=== PATIENT | male | born 1975 | race Caucasian/White ===

== ENCOUNTER 2022-01-23 17:42 | Inpatient (IN) | payer OTHER ==
[2022-01-23] MEDS ORDERED: MAGNESIUM CITRATE 300 ML BOTTLE PO PRN (19:22)
[2022-01-23] MEDS ORDERED: MAG HYDROX/AL HYDROX/SIMETH 30 ML UNIT-DOSE CUP PO PRN (19:22)
[2022-01-23] MEDS ORDERED: ONDANSETRON *ODT* 4 MG TABLET SL PRN (19:22)
[2022-01-23] MEDS ORDERED: METHOCARBAMOL 500 MG TABLET PO PRN (19:22)
[2022-01-23] MEDS ORDERED: MENTHOL/PHENOL 1 EACH UD MM PRN (19:22)
[2022-01-23] MEDS ORDERED: methaDONE HCL 10 MG TABLET (FOR DETOX USE ONLY) PO ONE (19:22)
[2022-01-23] MEDS ORDERED: LOPERAMIDE HCL 2 MG CAPSULE PO PRN (19:22)
[2022-01-23] MEDS ORDERED: ACETAMINOPHEN 325 MG TABLET (FP) PO PRN ×2 (19:22)
[2022-01-23] MEDS ORDERED: P-EPHED 60MG/TRIPROLIDI 2.5MG TABLET PO PRN (19:22)
[2022-01-23] MEDS ORDERED: MAGNESIUM HYDROX 2400MG/30ML ORAL SUSPENSION 30 ML CUP PO PRN (19:22)
[2022-01-23] MEDS ORDERED: cloNIDine HCL 0.1 MG TABLET PO PRN (19:22)
[2022-01-23] MEDS ORDERED: ALBUTEROL SO4 HFA INHALER IH PRN (19:24)
[2022-01-23] MEDS ORDERED: methaDONE HCL 10 MG TABLET (FOR DETOX USE ONLY) ONE (19:48)
[2022-01-23 22:15] VITALS: BMI 25.0
[2022-01-23] MEDS: THIAMINE HCL 100 MG TABLET (FP) PO SCH (23:40)
[2022-01-23] MEDS: BACITRACIN 0.9 GM PACKET TP SCH (23:51)
[2022-01-24] MEDS ORDERED: methaDONE HCL 10 MG TABLET (FOR DETOX USE ONLY) ONE (08:52)
[2022-01-24] MEDS: BACITRACIN 0.9 GM PACKET TP SCH ×2 (10:23→22:37)
[2022-01-24] MEDS: PRENATAL VITAMINS W/ FOLIC ACID TABLET (FP) PO SCH (10:23)
[2022-01-24] MEDS: NICOTINE 7 MG/24 HOURS TOPICAL PATCH TD SCH (10:23)
[2022-01-24] MEDS ORDERED: IBUPROFEN 400 MG TABLET (FP) PO ONE (11:30)
[2022-01-24] MEDS ORDERED: BACLOFEN 10 MG TABLET (FP) PO ONE (11:31)
[2022-01-24] MEDS ORDERED: DICYCLOMINE HCL 10 MG CAPSULE PO ONE (11:33)
[2022-01-24] MEDS ORDERED: DIPHENOXYLATE 2.5/ATROPINE.025 1 COMBO TABLET PO ONE (11:39)
[2022-01-24] MEDS ORDERED: CYCLOBENZAPRINE HCL 10 MG TABLET (FP) PO SCH (11:45)
[2022-01-24] MEDS ORDERED: cloNIDine HCL 0.1 MG TABLET PO ONE (12:00)
[2022-01-24] MEDS: LIDOCAINE 5% TOPICAL PATCH TP SCH (12:14)
[2022-01-24] MEDS ORDERED: CYCLOBENZAPRINE HCL 10 MG TABLET (FP) PO ONE (12:15)
[2022-01-24 14:19] LABS: HEMATOCRIT 40.4 % (35.4-49); HEMOGLOBIN 13.4 GM/dL (11.7-16.9); MCH 29.2 pg (25.7-33.7); MCHC 33.3 g/dl (32.0-35.9); MEAN CELL VOLUME 87.8 fl (80-96); MEAN PLT VOLUME 8.9 fl (7.5-11.1); PLATELET COUNT 259 10^3/uL (134-434); RDW 13.5 % (11.9-15.9); WHITE BLOOD COUNT 7.5 K/mm3 (4.0-10.0)
[2022-01-24 14:26] LABS: BLOOD UREA NITROGEN 16.6 mg/dL (7-18); CALCIUM 8.6 mg/dL (8.5-10.1)
[2022-01-24 14:27] LABS: ALBUMIN 3.4 g/dl (3.4-5.0)
[2022-01-24 14:30] LABS: CREATININE 0.8 mg/dL (0.55-1.3)
[2022-01-24 14:31] LABS: BILIRUBIN,TOTAL 0.8 mg/dL (0.2-1); TOT PROT 6.2 g/dl (6.4-8.2)
[2022-01-24] MEDS: LIDOCAINE PATCH REMOVAL MC SCH (22:38)
[2022-01-24] MEDS: hydrOXYzine PAMOATE 25 MG CAPSULE (FP) PO PRN (22:38)
[2022-01-24] MEDS: THIAMINE HCL 100 MG TABLET (FP) PO SCH (22:38)
[2022-01-24] MEDS: MELATONIN 5 MG TABLETS PO PRN (22:38)
[2022-01-25] MEDS: PRENATAL VITAMINS W/ FOLIC ACID TABLET (FP) PO SCH (09:52)
[2022-01-25] MEDS: NICOTINE 7 MG/24 HOURS TOPICAL PATCH TD SCH (09:53)
[2022-01-25] MEDS: diazePAM 5 MG TABLET PO PRN ×2 (09:54→22:13)
[2022-01-25] MEDS: BACITRACIN 0.9 GM PACKET TP SCH ×2 (09:55→22:12)
[2022-01-25] MEDS: LIDOCAINE 5% TOPICAL PATCH TP SCH (09:56)
[2022-01-25] MEDS ORDERED: methaDONE HCL 10 MG TABLET (FOR DETOX USE ONLY) PO ONE (10:00)
[2022-01-25] MEDS: THIAMINE HCL 100 MG TABLET (FP) PO SCH (22:12)
[2022-01-25] MEDS: LIDOCAINE PATCH REMOVAL MC SCH (22:14)
[2022-01-25] MEDS: MELATONIN 5 MG TABLETS PO PRN (22:14)
[2022-01-26] MEDS: diazePAM 5 MG TABLET PO PRN ×2 (05:15→10:28)
[2022-01-26] MEDS: hydrOXYzine PAMOATE 25 MG CAPSULE (FP) PO PRN ×2 (05:15→10:26)
[2022-01-26] MEDS ORDERED: methaDONE HCL 10 MG TABLET (FOR DETOX USE ONLY) ONE (08:38)
[2022-01-26] MEDS: BACITRACIN 0.9 GM PACKET TP SCH ×3 (10:26→22:11)
[2022-01-26] MEDS: LIDOCAINE 5% TOPICAL PATCH TP SCH ×2 (10:26→10:31)
[2022-01-26] MEDS: PRENATAL VITAMINS W/ FOLIC ACID TABLET (FP) PO SCH (10:26)
[2022-01-26] MEDS: NICOTINE 7 MG/24 HOURS TOPICAL PATCH TD SCH (10:26)
[2022-01-26 14:08] LABS: SARS-CoV-2 NAA Not Detected (Not Detected)
[2022-01-26] MEDS: THIAMINE HCL 100 MG TABLET (FP) PO SCH (22:11)
[2022-01-26] MEDS: LIDOCAINE PATCH REMOVAL MC SCH (22:11)
[2022-01-27] MEDS: BACITRACIN 0.9 GM PACKET TP SCH ×2 (10:00→22:47)
[2022-01-27] MEDS ORDERED: methaDONE HCL 10 MG TABLET (FOR DETOX USE ONLY) PO ONE (10:00)
[2022-01-27] MEDS: diazePAM 5 MG TABLET PO PRN ×2 (10:01→22:50)
[2022-01-27] MEDS: PRENATAL VITAMINS W/ FOLIC ACID TABLET (FP) PO SCH (10:01)
[2022-01-27] MEDS: LIDOCAINE 5% TOPICAL PATCH TP SCH (10:05)
[2022-01-27] MEDS: NICOTINE 7 MG/24 HOURS TOPICAL PATCH TD SCH (10:06)
[2022-01-27] MEDS ORDERED: NICOTINE 10 MG CARTRIDGE (INHALER) IH PRN (18:16)
[2022-01-27] MEDS: ACETAMINOPHEN 325 MG TABLET (FP) PO PRN (18:40)
[2022-01-27] MEDS: THIAMINE HCL 100 MG TABLET (FP) PO SCH (22:47)
[2022-01-27] MEDS: LIDOCAINE PATCH REMOVAL MC SCH (22:47)
[2022-01-27] MEDS: hydrOXYzine PAMOATE 25 MG CAPSULE (FP) PO PRN (22:50)
[2022-01-28] MEDS: hydrOXYzine PAMOATE 25 MG CAPSULE (FP) PO PRN (05:30)
[2022-01-28] MEDS: ACETAMINOPHEN 325 MG TABLET (FP) PO PRN (05:30)
[2022-01-28 07:16] VITALS: BP 102/52; PULSE 83; TEMP 97
[2022-01-28] MEDS: LIDOCAINE 5% TOPICAL PATCH TP SCH (10:49)
[2022-01-28] MEDS: NICOTINE 7 MG/24 HOURS TOPICAL PATCH TD SCH (10:49)
[2022-01-28] MEDS: BACITRACIN 0.9 GM PACKET TP SCH (10:49)
[2022-01-28] MEDS: PRENATAL VITAMINS W/ FOLIC ACID TABLET (FP) PO SCH (10:50)
== END 2022-01-28 10:50 | disposition home or self-care (01) | DRG 773 ==
LOC: YASAS 17:42 → Y6N 22:22
PROVIDERS: ADMIT Allergy & Immunology; ATTEND Allergy & Immunology
PROC: HZ2ZZZZ Detoxification Services for Substance Abuse Treatment (ICD-10-PCS; principal; 2022-01-23)
DX: F11.23 Opioid dependence with withdrawal (principal); F10.20 Alcohol dependence, uncomplicated; F14.20 Cocaine dependence, uncomplicated; F17.210 Nicotine dependence, cigarettes, uncomplicated; J45.909 Unspecified asthma, uncomplicated; Z88.6 Allergy status to analgesic agent
CPT/HCPCS: 36415; 80053; 85027; 86780; 93005; 93010; C9803; J0735; U0003; U0005